=== PATIENT | male | born 1945 | race Caucasian/White ===

== ENCOUNTER 2022-07-19 14:03 | Emergency (ER) | payer OTHER ==
[2022-07-19] MEDS ORDERED: Morphine 2 MG/ML VIAL ONE (15:28)
[2022-07-19] MEDS ORDERED: predniSONE 20 MG TAB ONE (15:37)
== END 2022-07-19 19:10 ==
LOC: NAV ERS 14:03
DX: M54.41 Lumbago with sciatica, right side (principal); G89.29 Other chronic pain; E03.9 Hypothyroidism, unspecified; I10 Essential (primary) hypertension; M19.90 Unspecified osteoarthritis, unspecified site; Z79.899 Other long term (current) drug therapy; Z85.46 Personal history of malignant neoplasm of prostate; Z79.82 Long term (current) use of aspirin
CPT/HCPCS: 72131; 96374; J2272; J7512